=== PATIENT | male | born 1965 | race Caucasian/White ===

== ENCOUNTER 2020-05-02 02:40 | Emergency (ER) | payer SELFPAY ==
[2020-05-02] MEDS ORDERED: NORMAL SALINE 1000 ML 1,000 ML IV ONE (03:07)
[2020-05-02] MEDS ORDERED: ONDANSETRON HCL INJ/PF 4 MG/2 ML SDV IV ONE (03:07)
[2020-05-02] MEDS ORDERED: MORPHINE SULFATE 10 MG/ML INJ IV ONE (03:07)
--- NOTE | 2020-05-02 03:09 | ER Document Report ---
ED GI/ - General Chief Complaint: Back Pain Stated Complaint: LOWER BACK PAIN Time Seen by Provider: 05/02/20 03:02 Notes: Patient is a 54-year-old male that comes emergency department for chief complaint of sudden onset severe left abdominal and flank pain with radiation into the left groin and genitals. Patient vomited twice. He has never had a kidney stone previously. He states his urine was very dark today. He was outside working in the sun all day. He denies trauma, focal numbness or weakness, fever. He only reports orthopedic/skin surgery. He denies daily medications, alcohol, recreational drugs. TRAVEL OUTSIDE OF THE [place] IN LAST 30 DAYS: No - Related Data Allergies/Adverse Reactions: No Known Allergies Allergy (Verified 05/02/20 03:49) Past Medical History - General Information source: Patient - Social History Smoking Status: Never Smoker Lives with: Alone Family History: Malignancy Past Surgical History: Reports: Hx Orthopedic Surgery - RFA - Immunizations Immunizations up to date: Yes Hx Diphtheria, Pertussis, Tetanus Vaccination: Yes Review of Systems - Review of Systems Constitutional: No symptoms reported EENT: No symptoms reported Cardiovascular: No symptoms reported Respiratory: No symptoms reported Gastrointestinal: See HPI Genitourinary: See HPI Male Genitourinary: See HPI Musculoskeletal: No symptoms reported Skin: No symptoms reported Hematologic/Lymphatic: No symptoms reported Neurological/Psychological: No symptoms reported Physical Exam - Vital signs Vitals: Temp 98.5 F 05/02/20 02:40 - Notes Notes: GENERAL: Patient appears to be in distress, has difficulty holding still, grimacing HEAD: Normocephalic, atraumatic. EYES: Pupils equal, round, and reactive to light. Extraocular movements intact. ENT: Oral mucosa moist, tongue midline. Oropharynx unremarkable. Airway patent. NECK: Full range of motion. Supple. Trachea midline. No lymphadenopathy. LUNGS: Clear to auscultation bilaterally, no wheezes, rales, or rhonchi. No respiratory distress. Non-tender chest wall. HEART: Regular rate and rhythm. No murmur ABDOMEN: There is some generalized tenderness in the mid to lower left abdomen, nonspecific, no guarding. Remaining abdomen unremarkable. GENITOURINARY: No swelling, tenderness, or abnormal finding of the left scrotum, testicles, or the genitalia in general. Normal cremasteric reflex. Heidi VOSS present during exam. EXTREMITIES: Moves all 4 extremities spontaneously. No edema, normal radial and dorsalis pedis pulses bilaterally. No cyanosis. BACK: no cervical, thoracic, lumbar midline tenderness. No saddle anesthesia, normal distal neurovascular exam. Moves all extremities in full range of motion. NEUROLOGICAL: Alert and oriented x3. Normal speech. Cranial nerves II through XII grossly intact. Strength 5/5 in all extremities. PSYCH: Normal affect, normal mood. SKIN: Warm, dry, normal turgor. No rashes or lesions noted. Course - Re-evaluation Re-evalutation: Patient in obvious distress on initial evaluation, no history of kidney stones, does not appear to have testicular torsion, CBC and chemistry are unremarkable. Patient has not been able to urinate yet. Patient is significantly improved after pain medication. Discussed options, decision was made to proceed with a CAT scan to rule out acute abdomen or concerning finding. Fortunately CT shows passed stone into the bladder with no additional concerning findings. Urine shows blood but is otherwise unremarkable. On reevaluation patient with no complaints. Discussed details, patient is very appreciative, discussed follow-up and return precautions. Stable and well-appearing at time of discharge. - Vital Signs Vital signs: Temp Pulse Resp BP Pulse Ox 98.1 F 57 L 16 129/94 H 100 05/02/20 06:11 05/02/20 06:11 05/02/20 06:11 05/02/20 06:11 05/02/20 06:11 - Laboratory Result Diagrams: 05/02/20 03:00 05/02/20 03:00 Laboratory results interpreted by me: 05/02/20 05/02/20 05/02/20 03:00 03:00 04:55 Lymph % (Auto) 12.3 L Seg Neutrophils % 80.8 H BUN 24 H Glucose 128 H Urine Protein 30 H Urine Blood LARGE H Discharge - Discharge Clinical Impression: Left flank pain Abdominal pain Qualifiers: Abdominal location: left lower quadrant Qualified Code(s): R10.32 - Left lower quadrant pain Condition: Stable Disposition: HOME, SELF-CARE Instructions: Oral Narcotic Medication ([facility]) Additional Instructions: You passed a kidney stone into your bladder tonight. You should just passed this over the next couple of days although you may have some spasms along her abdomen and flank. Drink plenty of water, take the provided pain and nausea medication if needed, 600 mg of ibuprofen every 6 hours also helps with pain. Follow-up with primary care. Return for any concerning symptoms including fever, vomiting, severe worsening pain, or any other concerning symptoms.
[2020-05-02 03:17] LABS: ABSOLUTE EOSINOPHILS # (AUTO) 0.1 10^3/uL (0.0-0.6); ABSOLUTE LYMPHOCYTES (AUTO) 1.2 10^3/uL (0.5-4.7); ABSOLUTE MONOCYTES (AUTO) 0.6 10^3/uL (0.1-1.4); BASOPHILS % (AUTO) 0.3 % (0-2); EOSINOPHILS % (AUTO) 0.7 % (0-6); HEMATOCRIT 41.5 % (37.9-51.0); HEMOGLOBIN 14.6 g/dL (13.5-17.0); LYMPHOCYTES % (AUTO) 12.3 % (13-45); MEAN CORPUSCULAR HEMOGLOBIN 30.8 pg (27.0-33.4); MEAN CORPUSCULAR HGB CONC 35.3 g/dL (32.0-36.0); MEAN CORPUSCULAR VOLUME 87 fl (80-97); MONOCYTES % (AUTO) 5.9 % (3-13); PLATELET COUNT 252 10^3/uL (150-450); RED BLOOD COUNT 4.75 10^6/uL (4.35-5.55); RED CELL DISTRIBUTION WIDTH 13.3 % (11.5-14.0); SEGMENTED NEUTROPHILS % (AUTO) 80.8 % (42-78); TOTAL CELLS COUNTED % (AUTO) 100 %; WHITE BLOOD COUNT 9.9 10^3/uL (4.0-10.5)
[2020-05-02 03:34] LABS: ALBUMIN 4.3 g/dL (3.5-5.0); ALKALINE PHOSPHATASE 90 U/L (38-126); ANION GAP 8 (5-19); ASPARTATE AMINO TRANSFERASE 22 U/L (17-59); BILIRUBIN,DIRECT 0.3 mg/dL (0.0-0.4); BILIRUBIN,TOTAL 0.8 mg/dL (0.2-1.3); BLOOD UREA NITROGEN 24 mg/dL (7-20); CALCIUM 9.1 mg/dL (8.4-10.2); CARBON DIOXIDE 29 mmol/L (22-30); CHLORIDE 102 mmol/L (98-107); CREATINE KINASE 125 U/L (55-170); GLUCOSE 128 mg/dL (75-110); POTASSIUM 3.9 mmol/L (3.6-5.0); TOTAL PROTEIN 6.9 g/dL (6.3-8.2)
--- NOTE | 2020-05-02 04:23 | RADIOLOGY REPORT (SQ) ---
CLINICAL HISTORY: left flank and abd pain, vomiting COMPARISON: None. TECHNIQUE: CT ABDOMEN PELVIS WITHOUT IV CONTRAST on 05/02/2020 3:08 AM CDT This exam was performed according to our departmental dose-optimization program, which includes automated exposure control, adjustment of the mA and/or kV according to patient size and/or use of iterative reconstruction technique. FINDINGS: Lower lungs are clear. Abdomen: The liver is normal in appearance. There is no biliary dilatation. Gallbladder is normal in appearance. The pancreas and spleen are normal in appearance. The adrenal glands and kidneys are unremarkable. Abdominal aorta is normal in course and caliber without aneurysm. There is no free air. There is no retroperitoneal adenopathy. Pelvis: There is no bowel obstruction. Urinary bladder contains a 2 mm calculus in its dependent aspect. There is no free fluid. Appendix is not clearly seen. Skeleton: There are no acute osseous findings. No suspicious bony lesions. IMPRESSION: 2 mm urinary bladder calculus. No hydronephrosis.
[2020-05-02 05:36] LABS: APPEARANCE,URINE CLEAR; BILIRUBIN,URINE NEGATIVE (NEGATIVE); COLOR,URINE YELLOW; GLUCOSE, URINE NEGATIVE (NEGATIVE); KETONES,URINE NEGATIVE (NEGATIVE); LEUKOCYTE ESTERASE,URINE NEGATIVE (NEGATIVE); NITRITE,URINE NEGATIVE (NEGATIVE); PROTEIN,URINE 30 mg/dL (NEGATIVE); UROBILINOGEN,URINE NEGATIVE mg/dL (<2.0)
[2020-05-02 05:37] LABS: ADD MANUAL MICROSCOPIC YES
[2020-05-02 05:47] LABS: RBC,URINE 30-50 /HPF; WBC,URINE RARE /HPF
[2020-05-02] MEDS ORDERED: ONDANSETRON ODT 4 MG TAB (6 TAB/ER DISP) PO PRN (05:53)
[2020-05-02] MEDS ORDERED: HYDROCODONE/ACETAMINOPHEN 5-325 MG (6 TAB/ER DISP) PO PRN (05:53)
[2020-05-02 06:14] VITALS: BP 129/94
== END 2020-05-02 06:25 | disposition home or self-care (01) ==
LOC: ER 02:40
DX: N21.0 Calculus in bladder (principal); R11.10 Vomiting, unspecified; R10.32 Left lower quadrant pain; R10.9 Unspecified abdominal pain
CPT/HCPCS: 99285; 96361; 96374; 96375; 36415; 82550; 83690; 85025; 80053; 81001; 74176; J2270; J2405; J7030